=== PATIENT | female | born 1990 | race Caucasian/White ===

== ENCOUNTER → 2016-08-06 | Outpatient (REF) | payer MEDICAID | LOC: M SFHCLERA 13:38 | PROVIDERS: ATTEND Physician Assistant | DX: J02.9 Acute pharyngitis, unspecified (principal) ==

== ENCOUNTER → 2017-06-03 | Outpatient (REF) | payer OTHER | LOC: M SFHCLERA 12:17 | DX: R50.9 Fever, unspecified (principal) ==

== ENCOUNTER → 2017-08-31 | Outpatient (REF) | payer MEDICAID | LOC: M SFHCLERA 10:34 | DX: J02.9 Acute pharyngitis, unspecified (principal) ==

== ENCOUNTER → 2017-10-20 | Outpatient (CLI) | payer OTHER, MEDICAID | LOC: M RAD 12:11 | DX: E05.90 Thyrotoxicosis, unspecified without thyrotoxic crisis or storm (principal) | CPT/HCPCS: 78012 ==

== ENCOUNTER → 2017-11-25 | Outpatient (CLI) | payer OTHER, MEDICAID ==
[2017-11-25 14:12] LABS: HCG, SERUM QUANTITATIVE < 1.0 MIU/ML
== END ==
LOC: M LAB 12:55
DX: E04.1 Nontoxic single thyroid nodule (principal)

== ENCOUNTER → 2017-11-27 | Outpatient (CLI) | payer OTHER, MEDICAID | LOC: M RAD 14:32 | DX: E04.1 Nontoxic single thyroid nodule (principal) | CPT/HCPCS: A9517 ==

== ENCOUNTER → 2017-11-30 | Outpatient (REF) | payer MEDICAID | LOC: M SFHCLERA 14:58 | DX: N30.01 Acute cystitis with hematuria (principal) ==

== ENCOUNTER → 2018-01-21 | Outpatient (CLI) | payer OTHER, MEDICAID ==
[2018-01-21 16:45] LABS: FREE T4 0.66 NG/DL (0.76-1.46)
== END ==
LOC: M WUC 13:20
DX: E04.1 Nontoxic single thyroid nodule (principal)

== ENCOUNTER → 2018-03-09 | Outpatient (REF) | payer MEDICAID | LOC: M SFHCLERA 15:32 | DX: R53.81 Other malaise (principal) ==

== ENCOUNTER → 2018-03-30 | Outpatient (CLI) | payer OTHER ==
[2018-03-30 13:05] LABS: FREE T4 1.12 NG/DL (0.76-1.46); THYROID STIMULATING HORMONE 4.17 uIU/ML (0.358-3.740)
== END ==
LOC: M WUC 10:34
PROVIDERS: ATTEND Nurse Practitioner Family
DX: E89.0 Postprocedural hypothyroidism (principal)

== ENCOUNTER → 2018-08-05 | Outpatient (CLI) | payer OTHER ==
[2018-08-05 20:46] LABS: FREE T4 1.26 NG/DL (0.76-1.46); THYROID STIMULATING HORMONE 3.77 uIU/ML (0.358-3.740)
== END ==
LOC: M WUC 16:09
PROVIDERS: ATTEND Nurse Practitioner Family
DX: E89.0 Postprocedural hypothyroidism (principal)